=== PATIENT | female | born 1990 | race Caucasian/White ===

== ENCOUNTER 2016-08-03 07:21 | Emergency (ER) | payer MEDICAID ==
[~2016-08-03] VITALS: Wt 85.5 kg
[2016-08-03 08:56] LABS: URINE BLOOD (Dip) POC Trace-lysed (NEGATIVE)
[2016-08-03 09:04] LABS: ADD SCAN DIFF NO
[2016-08-03 09:07] LABS: BASOPHIL # 0.1 10^3/ul (0.0-0.1); BASOPHILS % 0.7 % (0.0-2.0); EOSINOPHILS # 0.7 10^3/ul (0.0-0.5); EOSINOPHILS % 7.5 % (0.0-7.0); HEMATOCRIT 42.9 % (37.0-47.0); HEMOGLOBIN 15.2 g/dl (12.0-16.0); LYMPHOCYTES # 1.9 10^3/ul (0.8-2.9); LYMPHOCYTES % 21.2 % (15.0-51.0); MEAN CORPUSCULAR HGB CONC 35.4 g/dl (32.0-37.0); MEAN CORPUSCULAR VOLUME 87.4 fl (82.0-101.0); MONOCYTE # 0.9 10^3/ul (0.3-0.9); MONOCYTES % 9.6 % (0.0-11.0); NEUTROPHIL # 5.4 10^3/ul (1.6-7.5); NEUTROPHILS % 60.9 % (39.0-77.0); PLATELET COUNT 360 10^3/UL (140-415); RED BLOOD COUNT 4.91 10^6/ul (4.20-5.40); RED CELL DISTRIBUTION WIDTH 11.7 % (11.5-14.5); WHITE BLOOD COUNT 8.9 10^3/ul (4.8-10.8)
[2016-08-03] MEDS ORDERED: LORAZEPAM 1 MG TAB PO ONE (09:30)
[2016-08-03 09:31] LABS: D-DIMER 971.92 ng/ml (<460)
[2016-08-03 09:35] LABS: BARBITURATES Negative (NEGATIVE); BENZODIAZEPINES Negative (NEGATIVE); CANNABINOIDS Negative (NEGATIVE); COCAINE Negative (NEGATIVE); OPIATES Negative (NEGATIVE)
[2016-08-03 09:46] LABS: ALBUMIN 4.8 g/dl (3.3-4.9); POTASSIUM 3.7 mmol/L (3.5-5.1)
[2016-08-03 09:48] LABS: BILIRUBIN,INDIRECT 0.6 mg/dl (0-1.1); BILIRUBIN,TOTAL 0.6 mg/dl (0.2-1.3); CREATININE 0.79 mg/dl (0.44-1.00)
[2016-08-03 09:49] LABS: ALBUMIN/GLOBULIN RATIO 1.33; CALCIUM 10.2 mg/dl (8.4-10.2); TOTAL PROTEIN 8.4 g/dl (6.1-8.1)
--- NOTE | 2016-08-03 10:00 | ERD ---
ER Documentation Chief Complaint Date/Time DATE: 08/03/16 TIME: 09:54 Chief Complaint PALPITATIONS SINCE YESTERDAY.NO PAIN. NO SOB. NO FEVERS. HPI This a 26-year-old female who presents to the emergency department today complaining of palpitations that started yesterday morning. Patient states this has happened to her one time in the past when she was stressed during finals. States that she thinks that she does have a history of anxiety and is stressed at her work however does not take any medication for it has never been formally evaluated. States that she does currently feel some shortness of breath however denies any fevers or chills. Denies any drug abuse, other medical complications. ROS All systems reviewed and are negative except as per history of present illness. Medications Home Meds Active Scripts Lorazepam* (Ativan*) 0.5 Mg Tablet, 0.5 MG PO Q8, #10 TAB Prov:WILMA KHALIL PA-C 08/03/16 PMhx/Soc Medical and Surgical Hx: pt denies Surgical Hx Hx Respiratory Disorders: Yes (Asthma) Hx Psychiatric Problems: Yes (Anxiety) Hx Alcohol Use: No Hx Substance Use: No Hx Tobacco Use: No Physical Exam Vitals Vital Signs Date Time Temp Pulse Resp B/P Pulse Ox O2 Delivery O2 Flow Rate FiO2 08/03/16 07:31 98.5 110 21 139/85 98 Physical Exam Const: pleasant, NAD Head: Atraumatic Eyes: Normal Conjunctiva ENT: Normal External Ears, Nose and Mouth. Neck: Full range of motion..~ No meningismus. Resp: Clear to auscultation bilaterally Cardio: Tachycardic, regular rhythm, no murmurs Abd: Soft, non tender, non distended. Normal bowel sounds Skin: No petechiae or rashes Ext: No cyanosis, or edema Neur: Awake and alert Psych: Normal Mood and Affect Result Diagram: 08/03/16 0900 08/03/16 0900 Results 24 hrs Laboratory Tests Test 08/03/16 08:55 08/03/16 09:00 Bedside Urine Blood Trace-lysed Bedside Urine Glucose (UA) Negative Bedside Urine Ketones (LAB) Negative Bedside Urine Leukocyte Esterase (L Negative Bedside Urine Nitrite (LAB) Negative Bedside Urine Protein (LAB) Negative Bedside Urine pH (LAB) 7.0 Alanine Aminotransferase (ALT/SGPT) 30IU/L Albumin 4.8g/dl Albumin/Globulin Ratio 1.33 Alkaline Phosphatase 73IU/L Anion Gap 21 Aspartate Amino Transf (AST/SGOT) 22IU/L Basophils # 0.110^3/ul Basophils % 0.7% Blood Urea Nitrogen 10mg/dl Calcium Level 10.2mg/dl Carbon Dioxide Level 25mmol/L Chloride Level 104mmol/L Creatinine 0.79mg/dl D-Dimer 971.92ng/ml D-Dimer Comment Direct Bilirubin 0.00mg/dl Eosinophils # 0.710^3/ul Eosinophils % 7.5% Globulin 3.60g/dl Glucose Level 75mg/dl Hematocrit 42.9% Hemoglobin 15.2g/dl Indirect Bilirubin 0.6mg/dl Lymphocytes # 1.910^3/ul Lymphocytes % 21.2% Mean Corpuscular Hemoglobin 31.0pg Mean Corpuscular Hemoglobin Concent 35.4g/dl Mean Corpuscular Volume 87.4fl Mean Platelet Volume 10.0fl Monocytes # 0.910^3/ul Monocytes % 9.6% Neutrophils # 5.410^3/ul Neutrophils % 60.9% Nucleated Red Blood Cells # 0.010^3/ul Nucleated Red Blood Cells % 0.0/100WBC Platelet Count 41489^3/UL Potassium Level 3.7mmol/L Red Blood Count 4.9110^6/ul Red Cell Distribution Width 11.7% Sodium Level 146mmol/L Total Bilirubin 0.6mg/dl Total Protein 8.4g/dl Urine Amphetamines Screen Negative Urine Barbiturates Negative Urine Benzodiazepines Screen Negative Urine Cannabinoids Negative Urine Cocaine Screen Negative Urine Opiates Screen Negative White Blood Count 8.910^3/ul Current Medications Medications (Trade) Dose Ordered Sig/Asha Route PRN Reason Start Time Stop Time Status Last Admin Dose Admin Lorazepam 1 mg 1 mg ONCE ONCE PO 08/03/16 09:30 08/03/16 09:31 DC 08/03/16 09:42 Sodium Chloride (NS) 1,000 ml @ 1,000 mls/hr Q1H ONCE IV 08/03/16 10:30 08/03/16 11:30 DC 08/03/16 10:28 IV Flush 10 ml 10 ml STK-MED ONCE .ROUTE 08/03/16 10:59 08/03/16 11:00 DC 08/03/16 11:17 Sodium Chloride 100 ml @ ud STK-MED ONCE .ROUTE 08/03/16 10:59 08/03/16 11:00 DC 08/03/16 11:18 Iohexol (Omnipaque) 100 ml @ ud STK-MED ONCE .ROUTE 08/03/16 10:59 08/03/16 11:00 DC 08/03/16 11:18 Iohexol (Omnipaque 350mg/ ml) 50 ml STK-MED ONCE .ROUTE 08/03/16 11:00 08/03/16 11:01 DC 08/03/16 11:18 DIAGNOSTIC IMAGING REPORT Patient: PINEDA SINCLAIR : 1990 Age: 26 Sex: F MR #: [id number] DOS: 08/03/16 1011 Ordering MD: WILMA KHALIL PA-C Location: [facility] Room/Bed: PROCEDURE: CT pulmonary angiogram. CLINICAL INDICATION: Tachycardia. Elevated D-dimer. Shortness of breath. TECHNIQUE: CT scan of the chest and CT pulmonary angiogram was performed on a multi-slice CT scanner. High-resolution thin slice coronal and sagittal imaging was obtained from the axial source images. The patient was examined following the uncomplicated intravenous administration of 110 cc of Omnipaque 350. The images were reviewed on a PACS workstation. Three dimensional reformatting was used as part of interpretation. The total exam CTDI equals 34.4 and the total exam DLP equals 654.96 mGy-cm. COMPARISON: None available FINDINGS: CT Pulmonary Angiogram: The pulmonary arteries are well visualized and opacified to the proximal subsegmental level. No filling defects are identified throughout the pulmonary arterial tree to suggest pulmonary embolism. The pulmonary artery is normal for size. No filling defects are identified within the chambers of the heart. The aorta is well opacified and normal in course and caliber. There is no evidence of aneurysm, dissection, or intramural hematoma. Of note, the left vertebral artery arises directly from the aorta, a common variant. CT Chest: There are no enlarged mediastinal, axillary, or hilar lymph nodes seen. The heart is normal in size, and there is no pericardial effusion. There is a 5 mm nodule in the right posterolateral lower lobe. The lungs are otherwise clear. No pulmonary infiltrate or pleural effusion is identified. There is no pneumothorax. The central tracheobronchial tree is patent. The partially imaged subdiaphragmatic contents are within normal limits. The bones are intact. IMPRESSION: 1. No CT evidence of pulmonary embolism. 2. No CT evidence of aortic pathology. 3. 5 mm right lower lobe pulmonary nodule. No low risk patient, this requires no further additional follow-up. In a high risk patient, additional follow-up can be obtained at 12 months. RPTAT: KK .Iain Martínez MD, Date Time Electronically viewed and signed by .Iain Martínez MD, on 2016 11:31 .B/ CC: WILMA KHALIL PA-C Procedures/MDM This is a 26-year-old female who presents to the emergency department today complaining of heart palpitations for the past day and a half. I did obtain an EKG that showed a prolonged QT. I discussed the EKG with Dr. Worthington as well as the patient's symptoms and she recommended some laboratory work as well as a urine drug screen. EKG read and interpreted by Dr. Worthington rate [address] elevation. QT prolongation. Nonspecific ST and T-wave abnormality with sinus tachycardia. Low suspicion for acute GA, PE, pericarditis. Laboratory work shows no elevated white blood cell count. She is not anemic. Platelets are within normal limits. Sodium is mildly elevated otherwise electrolytes are within normal limits. Glucose is within normal limits. Liver function is within normal limits. D-dimer is elevated at 971. Urine drug screen is negative test is negative UA is negative for infection I discussed the patient again with Dr. Worthington after the laboratory work and she has recommended a CT angiogram to rule out a PE. CT pulmonary angiogram shows no CT evidence of pulmonary embolism. There is no CT evidence of aortic pathology. There is a 5 mm nodule in the right posterior lateral lower lobe. Lungs are otherwise clear. There is no pulmonary infiltrate or pleural effusion. There is no pneumothorax. I have explained all results to the patient. She is in understanding. Patient symptoms at this time consistent with heart palpitations and sinus tachycardia. Other differentials to consider are anxiety related symptoms. Patient was given Ativan and IV fluids here in the emergency department and reported feeling slightly better. Patient will be given a prescription for a low-dose of Ativan for home. I will give her a list of referrals for cardiology and pulmonology follow-up. I have also encouraged the patient to follow-up with counselors at her [facility] to help manage her stress. At this time the patient is stable for discharge and outpatient management. Patient should follow up with their PCP in the next 1-2 days. They may return to the emergency department sooner for any persistent or worsening of symptoms. Patient understood and agreed with the plan. Departure Diagnosis: Primary Impression: Palpitations Condition: WILMA Covington PA-C Aug 03, 2016 09:59
[2016-08-03] MEDS ORDERED: SOD CHLORIDE 0.9% 1,000 ML IV ONE (10:30)
[2016-08-03] MEDS ORDERED: IOHEXOL 100 ML ONE (10:59)
[2016-08-03] MEDS ORDERED: SOD CHLORIDE 0.9% 100 ML ONE (10:59)
[2016-08-03] MEDS ORDERED: IOHEXOL 350MG/ML 50 ML BTL ONE (11:00)
--- NOTE | 2016-08-03 11:32 | RADRPT ---
PROCEDURE: CT pulmonary angiogram. CLINICAL INDICATION: Tachycardia. Elevated D-dimer. Shortness of breath. TECHNIQUE: CT scan of the chest and CT pulmonary [facility] High-resolution thin slice coronal and sagittal imaging was obtained from the axial source imag es. The patient was examined following the uncomplicated intravenous administration of 110 cc of Om nipaque 350. The images were reviewed on a PACS workstation. Three dimensional reformatting was used as part of interpretation. The total exam CTDI equals 34.4 and the total exam DLP equals 654.96 mG y-cm. COMPARISON: None available FINDINGS: CT Pulmonary Angiogram: The pulmonary arteries are well visualized and opacified to the proximal subsegmental level. No jenny ling defects are identified throughout the pulmonary arterial tree to suggest pulmonary embolism. T he pulmonary artery is normal for size. No filling defects are identified within the chambers of th e heart. The aorta is well opacified and normal in course and caliber. There is no evidence of aneurysm, dis section, or intramural hematoma. Of note, the left vertebral artery arises directly from the aorta, a common variant. CT Chest: There are no enlarged mediastinal, axillary, or hilar lymph nodes seen. The heart is normal in size , and there is no pericardial effusion. There is a 5 mm nodule in the right posterolateral lower lobe. The lungs are otherwise clear. No p ulmonary infiltrate or pleural effusion is identified. There is no pneumothorax. The central trach eobronchial tree is patent. The partially imaged subdiaphragmatic contents are within normal limits. The bones are intact. IMPRESSION: 1. No CT evidence of pulmonary embolism. 2. No CT evidence of aortic pathology. 3. 5 mm right lower lobe pulmonary nodule. No low risk patient, this requires no further additiona l follow-up. In a high risk patient, additional follow-up can be obtained at 12 months. RPTAT: KK .Iain Martínez MD, Date Time Electronically viewed and signed by .Iain Martínez MD, MD on 08/03/2016 11:31 .B/
[2016-08-03] MEDS ORDERED: LORA-441 PO (11:52)
[2016-08-03 12:15] VITALS: BP 125/82; PULSE 88; RESP 20; TEMP 98.5
== END 2016-08-03 12:19 | disposition home or self-care (01) ==
LOC: FTE 07:21
DX: R00.2 Palpitations (principal); J45.909 Unspecified asthma, uncomplicated
CPT/HCPCS: 36415; 71275; 80053; 80307; 81003; 85025; 85378; J7030; Q9967; Z7502; Z7610; 93005